=== PATIENT | female | born 1945 | race Caucasian/White ===

== ENCOUNTER 2025-02-15 12:33 | Emergency (ER) | payer MEDICARE, OTHER ==
[~2025-02-15] VITALS: Ht 152.4 cm; Wt 74.5 kg
[~2025-02-15 12:33] MED LIST: GLIPIZIDE10 MG PO; LANTUS100 UNITS/ SUB-Q; TRIAMTERENE25 GM SUB-Q
[2025-02-15] MEDS ORDERED: MECLIZINE HCL 25 MG TAB PO ONE (14:15)
[2025-02-15 14:35] LABS: BASOPHILS 0.8 % (0-2); EOSINOPHILS 2.4 % (0-6); HEMATOCRIT 34.5 % (35.0-50.0); HEMOGLOBIN 12.1 g/dL (12.0-18.0); LYMPHOCYTES 31.6 % (24-44); MCH 30.7 (27-36); MCV 87.7 fl (81-99); MONOCYTES 6.3 % (0-12); NEUTROPHILS 58.9 % (39-80); PLATELET COUNT 274 K/uL (140-440); RBC 3.93 M/ul (4.3-5.7); RDW 12.9 (10.5-15.0)
[2025-02-15 14:56] LABS: ALBUMIN 3.6 g/dL (3.4-5.0); ALBUMIN/GLOBULIN RATIO 0.88 (1.1-2.4); ANION GAP 11.2 (7-21); BILIRUBIN, TOTAL 0.5 mg/dL (0.2-1.0); BUN/CREATININE RATIO 19.13 (6.0-28.6); CALCIUM 8.9 mg/dL (8.5-10.1); CREATININE, SERUM 1.15 mg/dL (0.55-1.02); POTASSIUM 4.2 mmol/L (3.5-5.1); PROTEIN, TOTAL 7.7 g/dL (6.4-8.2)
[2025-02-15 16:36] VITALS: BP 123/55
--- NOTE | 2025-02-16 20:51 | EKG ---
[facility] [address] [place] [address] Signed Normal sinus rhythm Possible Inferior infarct , age undetermined Abnormal ECG When compared with ECG of 15-SEP-2016 07:50, Borderline criteria for Inferior infarct are now present Confirmed by Faye Lane MD () on 02/16/2025 8:51:10 PM Electronically Signed By: FAYE LANE MD 02/16/252050 PATIENT NAME: MAURITEONIRU MIKAELA Electrocardiogram DATE OF : 49 PHYSICIAN: FAYE LANE MD REPORT #: [id number] REPORT IS CONFIDENTIAL AND NOT TO BE RELEASED WITHOUT AUTHORIZATION
== END 2025-02-15 16:37 | disposition home or self-care (01) ==
LOC: ED 12:33
PROVIDERS: Emergency Medicine
DX: R42 Dizziness and giddiness (principal); I10 Essential (primary) hypertension; E11.9 Type 2 diabetes mellitus without complications
CPT/HCPCS: 80053; 83735; 84484; 85025; 93005; 93010; 99284; A9270